=== PATIENT | female | born 1985 | race African-American/Black ===

== ENCOUNTER 2020-08-13 20:53 | Emergency (ER) | payer SELFPAY ==
[~2020-08-13] VITALS: Ht 170.2 cm; Wt 92.1 kg
[2020-08-13 20:59] VITALS: BP 117/63
== END 2020-08-13 23:10 | disposition left against medical advice (07) ==
LOC: ER 20:53
DX: R10.30 Lower abdominal pain, unspecified (principal); R11.2 Nausea with vomiting, unspecified; R51.9 Headache, unspecified; Z53.21 Procedure and treatment not carried out due to patient leaving prior to being seen by health care provider

== ENCOUNTER 2020-10-08 02:09 | Observation (INO) | payer OTHER ==
[~2020-10-08] VITALS: Ht 170.2 cm; Wt 92.1 kg
[2020-10-08] MEDS ORDERED: TERBUTALINE SULFATE 1 MG/ML 1ML VIAL SC SCH (04:10)
[2020-10-08] MEDS ORDERED: TERBUTALINE SULFATE 1 MG/ML 1ML VIAL SC ONE (04:11)
[2020-10-08] MEDS ORDERED: METR500T PO (04:51)
== END 2020-10-08 05:01 | disposition home or self-care (01) ==
LOC: LDRP 02:09
PROVIDERS: ADMIT Specialist; ATTEND Specialist
DX: O62.9 Abnormality of forces of labor, unspecified (principal); O99.891 Other specified diseases and conditions complicating pregnancy; M54.9 Dorsalgia, unspecified; Z3A.25 25 weeks gestation of pregnancy
CPT/HCPCS: 59025; 76815; 76817; 81002; 87210; 96372; G0378; J3105

== ENCOUNTER 2020-12-13 18:22 | Observation (INO) | payer OTHER ==
[~2020-12-13 18:22] MED LIST: METR500T PO
[2020-12-13] MEDS ORDERED: PREN-96 PO (19:46)
[2020-12-13] MEDS ORDERED: ACYC1CAP23 PO (19:46)
== END 2020-12-13 20:01 | disposition home or self-care (01) ==
LOC: LDRP 18:22
PROVIDERS: ADMIT Obstetrics & Gynecology Obstetrics; ATTEND Obstetrics & Gynecology Obstetrics
DX: O62.9 Abnormality of forces of labor, unspecified (principal); O26.893 Other specified pregnancy related conditions, third trimester; R10.2 Pelvic and perineal pain; Z3A.34 34 weeks gestation of pregnancy
CPT/HCPCS: 59025; 81002; 94760; G0378; G0379

== ENCOUNTER 2021-01-02 20:10 | Observation (INO) | payer OTHER ==
[~2021-01-02] VITALS: Ht 170.2 cm; Wt 98.9 kg
[~2021-01-02 20:10] MED LIST changes: +ACYC1CAP23 PO; -METR500T PO; +PREN-96 PO
[2021-01-02 22:12] LABS: Urine Bacteria FEW /hpf (None Seen); Urine Blood Negative /uL (Negative); Urine Mucus FEW (None Seen); Urine Specific Gravity 1.032 (1.001-1.035); Urine WBC 9 /hpf (0 - 5)
[2021-01-02 22:25] LABS: Amphetamine Screen, Urine NEGATIVE (NEGATIVE); Barbiturate Scree,Urine NEGATIVE (NEGATIVE); Benzodiazephine Screen, Urine NEGATIVE (NEGATIVE); Cannabinoid Screen, Urine NEGATIVE (NEGATIVE); Cocaine Screen, Urine NEGATIVE (NEGATIVE); Opiate Scree,Urine NEGATIVE (NEGATIVE); Phencyclidine Screen, Urine NEGATIVE (NEGATIVE)
== END 2021-01-02 23:29 | disposition home or self-care (01) ==
LOC: LDRP 20:10
PROVIDERS: ADMIT Obstetrics & Gynecology; ATTEND Obstetrics & Gynecology
DX: O42.92 Full-term premature rupture of membranes, unspecified as to length of time between rupture and onset of labor (principal); Z3A.37 37 weeks gestation of pregnancy; Z79.899 Other long term (current) drug therapy
CPT/HCPCS: 59025; 76818; 80307; 81001; 81002; 84112; G0378; G0379; Q0114

== ENCOUNTER 2022-04-12 05:31 | Emergency (ER) | payer OTHER ==
[~2022-04-12] VITALS: Ht 170.2 cm; Wt 98.6 kg
[2022-04-12 05:50] VITALS: BP 114/71
[2022-04-12] MEDS ORDERED: PHENAZOPYRIDINE HCL 100 MG TAB PO ONE (06:15)
[2022-04-12 06:52] LABS: Urine Bacteria FEW /hpf (None Seen); Urine Blood 3+ /uL (Negative); Urine Mucus FEW (None Seen); Urine Specific Gravity 1.026 (1.001-1.035); Urine WBC 598 /hpf (0 - 5)
[2022-04-12] MEDS ORDERED: cefTRIAXone W LIDOCAINE 1 GM IM IM ONE ×2 (07:00→07:15)
[2022-04-12] MEDS ORDERED: LEVO750T8 PO (07:06)
[2022-04-12] MEDS ORDERED: ACET-1158 PO (07:06)
[2022-04-12] MEDS ORDERED: PHEN-1044 PO (07:06)
[2022-04-12] MEDS ORDERED: cefTRIAXone SOD 1,000 MG VL IM ONE (07:30)
== END 2022-04-12 07:48 | disposition home or self-care (01) ==
LOC: EDUNIT# 05:31 → ER 05:31
DX: N39.0 Urinary tract infection, site not specified (principal)
CPT/HCPCS: 81001; 96372; 99283; J0696